=== PATIENT | male | born 1980 | race Caucasian/White ===

== ENCOUNTER 2023-12-23 08:35 | Emergency (ER) | payer OTHER ==
[~2023-12-23] VITALS: Ht 182.9 cm; Wt 104.5 kg
[2023-12-23] MEDS: TETanus/Pertussis (Acell)/Diphther VAC/PF (Tdap-Adult) 0.5ml syringe IMVAC ONE (09:33)
[2023-12-23] MEDS: LIDOcaine 1% 30ml preserv. free vial IJ STA (09:33)
[2023-12-23 10:43] VITALS: BP 130/82; PULSE 85; RESP 18; TEMP 98.5; O2SAT 98
== END 2023-12-23 10:49 | disposition home or self-care (01) ==
LOC: ER 08:36
DX: S61.217A Laceration without foreign body of left little finger without damage to nail, initial encounter (principal); X58.XXXA Exposure to other specified factors, initial encounter; Y93.89 Activity, other specified; Y92.89 Other specified places as the place of occurrence of the external cause; Y99.8 Other external cause status
CPT/HCPCS: 12001; 73130; 90471; 90715; 99283; A6222; J7030